=== PATIENT | female | born 1955 | race African-American/Black ===

== ENCOUNTER 2018-06-14 19:33 | Observation (INO) | payer MEDICAID, OTHER ==
[~2018-06-14] VITALS: Ht 152.4 cm; Wt 81.6 kg
[2018-06-15] MEDS ORDERED: SODIUM CHLORIDE 0.9% 1,000 ML IV ONE ×2 (03:30→07:52)
[2018-06-15 03:56] LABS: Basophils # (auto) 0.1 uL; Basophils % (auto) 1.2 % (0.0-2.0); Eosinophils # (auto) 0.4 uL; Hematocrit 35.2 % (36.0-46.0); Hemoglobin 11.8 g/dL (12.2-16.2); Lymphocytes # (auto) 1.9 uL; Lymphocytes % (auto) 21.8 % (10.0-50.0); Mean Corpuscular Hemoglobin 27.1 pg (28.0-32.0); Mean Corpuscular Hgb Conc. 33.5 g/dL (32.0-36.0); Mean Corpuscular Volume 80.8 fL (80.0-100.0); Monocytes # (auto) 0.7 uL; Monocytes % (auto) 7.3 % (0.0-12.0); Neutrophils # (auto) 5.8 uL; Neutrophils % (auto) 64.7 % (37.0-80.0); Nucleated Red Blood Cells % 0.1 %; Platelet Count (auto) 347 10^3/uL (140-450); Red Blood Cells 4.35 10^6/uL (4.0-5.20); Red Cell Distribution Width 16.2 % (11.8-14.3); White Blood Cell 8.9 10^3/uL (4.4-10.8)
[2018-06-15 04:14] LABS: Albumin 3.6 g/dL (3.4-5.0); Calcium 9.2 mg/dL (8.5-10.1)
[2018-06-15 04:16] LABS: BUN/Creatinine Ratio 15.6
[2018-06-15 04:19] LABS: Bilirubin, Total 0.4 mg/dL (0.2-1.0)
[2018-06-15 04:28] LABS: Potassium 2.8 mmol/L (3.5-5.1)
[2018-06-15] MEDS ORDERED: POTASSIUM CHL 20 Meq TABLET PO ONE (04:45)
[2018-06-15] MEDS ORDERED: cloNIDine HCL 0.1 MG TAB PO ONE (04:45)
[2018-06-15] MEDS: POTASSIUM CHL 20MEQ/100ML 100 ML IV SCH ×2 (05:13→07:16)
[2018-06-15 05:56] LABS: Urine Bacteria MOD /hpf (None Seen); Urine Blood 1+ /uL (Negative); Urine Specific Gravity 1.017 (1.001-1.035); Urine WBC 32 /hpf (0 - 5)
[2018-06-15] MEDS ORDERED: HYDROcodone-ACET 5/325MG TAB PO ONE (06:00)
[2018-06-15] MEDS ORDERED: MORPHINE SULFATE 4 MG/ML SYR/VIAL IV ONE (08:00)
[2018-06-15] MEDS ORDERED: PROMETHAZINE HCL 25 MG/ML 1ML IV PRN (08:00)
[2018-06-15] MEDS ORDERED: cefTRIAXone 1GM/10ml StH20 or NS KIT IVpush IV ONE (08:00)
[2018-06-15] MEDS ORDERED: IOHEXOL 300 MG/ML 100ML BOTTLE IJ ONE (08:34)
[2018-06-15 09:55] VITALS: BP 138/60
== END 2018-06-15 11:07 | disposition home or self-care (01) | DRG 532 ==
LOC: EDBD 19:41 → ER 19:41 → OVERFLOW 19:42 → ER 06-15 11:07
PROVIDERS: ADMIT Anesthesiology; ATTEND Anesthesiology
DX: N93.9 Abnormal uterine and vaginal bleeding, unspecified (principal); G35 Multiple sclerosis; E87.6 Hypokalemia; I10 Essential (primary) hypertension
CPT/HCPCS: 36415; 71046; 74177; 76830; 76856; 80053; 81001; 85025; 86850; 86900; 86901; 93005; 96365; 96366; 96372; 96375; 99285; G0378; J0696; J2270; J2550; J3480; J7030; Q9967

== ENCOUNTER 2018-07-04 13:58 | Emergency (ER) | payer MEDICAID ==
[~2018-07-04] VITALS: Ht 152.4 cm; Wt 81.6 kg
[2018-07-04 14:18] VITALS: BP 137/81
[2018-07-04 15:06] LABS: Basophils # (auto) 0.1 uL; Basophils % (auto) 1.6 % (0.0-2.0); Eosinophils # (auto) 0.3 uL; Eosinophils % (auto) 4.7 % (0.0-7.0); Hematocrit 34.3 % (36.0-46.0); Hemoglobin 11.6 g/dL (12.2-16.2); Lymphocytes # (auto) 1.1 uL; Mean Corpuscular Hemoglobin 27.1 pg (28.0-32.0); Mean Corpuscular Hgb Conc. 33.8 g/dL (32.0-36.0); Mean Corpuscular Volume 80.2 fL (80.0-100.0); Monocytes # (auto) 0.9 uL; Monocytes % (auto) 11.7 % (0.0-12.0); Neutrophils # (auto) 4.9 uL; Nucleated Red Blood Cells % 0.1 %; Platelet Count (auto) 234 10^3/uL (140-450); Red Blood Cells 4.28 10^6/uL (4.0-5.20); Red Cell Distribution Width 17.4 % (11.8-14.3); White Blood Cell 7.3 10^3/uL (4.4-10.8)
[2018-07-04 15:23] LABS: Albumin 3.5 g/dL (3.4-5.0); BUN/Creatinine Ratio 10.8; Bilirubin, Total 0.8 mg/dL (0.2-1.0); Calcium 10.4 mg/dL (8.5-10.1); Total Protein 7.7 g/dL (6.4-8.2)
[2018-07-04 15:26] LABS: Potassium 2.8 mmol/L (3.5-5.1)
[2018-07-04] MEDS ORDERED: POTASSIUM EFFERVESENT TAB 25 MEQ PO ONE (16:45)
[2018-07-04 17:50] LABS: Urine Bacteria FEW /hpf (None Seen); Urine Blood 2+ /uL (Negative); Urine Mucus FEW (None Seen); Urine Specific Gravity 1.024 (1.001-1.035); Urine WBC 58 /hpf (0 - 5)
== END 2018-07-04 17:58 | disposition home or self-care (01) ==
LOC: ER 13:58
DX: N93.9 Abnormal uterine and vaginal bleeding, unspecified (principal); E87.6 Hypokalemia; R22.1 Localized swelling, mass and lump, neck; I10 Essential (primary) hypertension; Z90.710 Acquired absence of both cervix and uterus
CPT/HCPCS: 36415; 80053; 81001; 85025; 86850; 86900; 86901